=== PATIENT | female | born 1945 | race Caucasian/White ===

== ENCOUNTER 2019-11-08 08:46 | Inpatient (IN) | payer MEDICARE, MEDICAID ==
[~2019-11-08 08:46] MED LIST: Lactated Ringers 1,000 ML IV SCH; Lidocaine 1%/Sod Bicarbonate in NS 8.4% 1 ML Syringe IDERM PRN; Sodium Chloride 0.9% 10 ML Syringe FLUSH PRN
[2019-11-08] MEDS ORDERED: Bupivacaine 0.5%/EPINEPHrine 1:200,000 50 ML MDV ONE (09:18)
[2019-11-08] MEDS ORDERED: Dextrose 5% in Water 100 ML ONE (09:18)
[2019-11-08] MEDS ORDERED: Methylene Blue 50 MG/10 ML Ampule ONE (09:18)
[2019-11-08] MEDS ORDERED: Lidocaine 1% with EPINEPHrine 1:100,000 20 ML MDV ONE (09:18)
--- NOTE | 2019-11-08 09:42 | PCM.PREANE ---
Preanesthetic Assessment - Anesthesia/Transfusion/Family Hx Anesthesia History: Prior Anesthesia Without Reaction Transfusion History: Prior Transfusion Without Reaction - Review of Systems General: No Symptoms Pulmonary: No Symptoms Cardiovascular: No Symptoms Gastrointestinal: No Symptoms Neurological: No Symptoms Other: Reports: None - Physical Assessment NPO Status Date: 11/07/19 NPO Status Time: 22:00 Vital Signs: Last Vital Signs Temp 97.6 F 11/08/19 09:00 Pulse 57 L 11/08/19 09:00 Resp 16 11/08/19 09:00 BP 123/74 11/08/19 09:00 Pulse Ox 96 11/08/19 09:00 Height: 1.55 m Weight: 63.049 kg ASA Class: 2 Mental Status: Alert & Oriented x3 (slow to response) Airway Class: Mallampati = 4 Dentition: Reports: Broken Tooth/Teeth, Missing Tooth/Teeth Thyro-Mental Finger Breadths: 3 Mouth Opening Finger Breadths: 3 (limited opening) ROM/Head Extension: Limited/Partial Lungs: Clear to Auscultation, Normal Respiratory Effort Cardiovascular: Regular Rate, Regular Rhythm - Allergies Allergies/Adverse Reactions: Allergies Allergy/AdvReac Type Severity Reaction Status Date / Time alcohol Allergy Nausea Verified 11/07/19 11:41 aspirin Allergy Nausea Verified 11/07/19 11:41 codeine Allergy Cannot Verified 11/07/19 11:41 Remember - Acknowledgements Anesthesia Type Planned: General Anesthesia (phone consent from Deven Billings witnessed by Jazmyne Nice RN) Pt an Appropriate Candidate for the Planned Anesthesia: Yes Alternatives and Risks of Anesthesia Discussed w Pt/Guardian: Yes Pt/Guardian Understands and Agrees with Anesthesia Plan: Yes PreAnesthesia Questionnaire HEENT History: Reports: Other (See Below) Other HEENT History: broken tooth Cardiovascular History: Reports: High Cholesterol, Other (See Below) Other Cardiovascular History: hypotention Gastrointestinal History: Reports: Chronic Constipation Genitourinary History: Reports: UTI, Recurrent [employer] History: Reports: Musculoskeletal History: Reports: Arthritis Neurological History: Reports: Other (See Below) Other Neuro History: "confusion" Psychiatric History: Reports: Anxiety, Dementia, Depression, Psych Hospitalization(s), Schizophrenia Other Psychiatric History: Paranoid Endocrine/Metabolic History: Reports: Hypothyroidism, Osteopenia Hematologic History: Reports: Anemia Oncologic (Cancer) History: Reports: Breast (current dx) - Infectious Disease History Infectious Disease History: Reports: Chicken Pox Other Infectious Disease History: childhood - Past Surgical History Head Surgeries/Procedures: Reports: None HEENT Surgical History: Reports: None Cardiovascular Surgical History: Reports: None Respiratory Surgical History: Reports: None GI Surgical History: Reports: Colonoscopy Female Surgical History: Reports: Tubal Ligation Neurological Surgical History: Reports: None Oncologic Surgical History: Reports: Biopsy of Breast - SUBSTANCE USE Smoking Status *Q: Never Smoker Recreational Drug Use History: No - HOME MEDS Home Medications: Home Meds Acetaminophen [Tylenol Extra Strength] 500 mg PO Q4H PRN 11/07/19 [History] Alendronate [Fosamax] 35 mg PO Q7D 11/07/19 [History] Benztropine [Cogentin] 1 mg PO BEDTIME 11/07/19 [History] Calcium Carbonate/Vitamin D3 [Calcium 600-Vit D3 800 Tablet] 0.5 tab PO BID [History] Carboxymethylcellulose Sodium [Refresh Tears 0.5%] 1 drop EYEBOTH Q2H PRN [History] FA/Lycopene/Lut/MV,Ca,Iron,Min [Centrum] 1 tab PO DAILY 11/07/19 [History] LORazepam [Lorazepam] 0.25 mg PO DAILY 11/07/19 [History] Levothyroxine 75 mcg PO DAILY 11/07/19 [History] Lovastatin [Altoprev] 20 mg PO QPM 11/07/19 [History] Melatonin 10 mg PO BEDTIME 11/07/19 [History] Memantine HCl [Namenda] 10 mg PO BID 11/07/19 [History] OLANZapine [ZyPREXA] 10 mg PO QPM 11/07/19 [History] Paliperidone Palmitate [Invega Sustenna] 1.5 ml IM Q30D 11/07/19 [History] Sennosides [Senna] 1 tab PO QPM 11/07/19 [History] Sennosides [Senna] 2 tab PO QAM 11/07/19 [History] Sertraline [Zoloft] 25 mg PO DAILY 11/07/19 [History] Witch Christina [Hemorrhoidal Pads] 1 pad TOP DAILY PRN 11/07/19 [History] diphenhydrAMINE [Benadryl] 25 mg PO BEDTIME PRN 11/07/19 [History] polyethylene glycoL 3350 [MiraLAX] 17 g PO DAILY 11/07/19 [History] - CURRENT (IN HOUSE) MEDS Current Meds: Current Medications Lactated Ringer's (Ringers, Lactated) 1,000 mls @ 125 mls/hr IV ASDIRECTED [place] Stop: 11/08/19 23:00 Lidocaine/Sodium Bicarbonate (Buffered Lidocaine 1% In Ns 8.4%) 0.25 ml IDERM ONETIME PRN PRN Reason: Prior to IV Start Stop: 11/08/19 18:00 Sodium Chloride (Saline Flush) 10 ml FLUSH ASDIRECTED PRN PRN Reason: Keep Vein Open Stop: 11/08/19 18:00 Discontinued Medications Bupivacaine HCl/Epinephrine Bitart (Marcaine 0.5%/Epinephrine 1:200,000) Confirm Administered Dose 50 ml .ROUTE .STK-MED ONE Stop: 11/08/19 09:19 Dextrose/Water (Dextrose 5% In Water) Confirm Administered Dose 100 mls @ as directed .ROUTE .STK-MED ONE Stop: 11/08/19 09:19 Lidocaine/Epinephrine (Xylocaine 1% With Epinephrine 1:100,000) Confirm Administered Dose 20 ml .ROUTE .STK-MED ONE Stop: 11/08/19 09:19 Methylene Blue (Provayblue) Confirm Administered Dose 50 mg .ROUTE .STK-MED ONE Stop: 11/08/19 09:19
[2019-11-08] MEDS ORDERED: Propofol 200 MG/20 ML SDV ONE (09:58)
[2019-11-08] MEDS ORDERED: Rocuronium 50 MG/5 ML Vial ONE (09:58)
[2019-11-08] MEDS ORDERED: Midazolam 1 MG/ML 2 ML SDV ONE (09:59)
[2019-11-08] MEDS ORDERED: Ondansetron 4 MG/2 ML SDV ONE (09:59)
[2019-11-08] MEDS ORDERED: fentaNYL 250 MCG/5 ML SDV ONE (09:59)
[2019-11-08] MEDS ORDERED: Lidocaine 1% 4 ML ONE (10:02)
[2019-11-08] MEDS ORDERED: Succinylcholine/Normal Saline 100 MG/5 ML Syringe ONE (10:06)
[2019-11-08] MEDS ORDERED: ceFAZolin 1 GM Vial ONE (10:54)
[2019-11-08] MEDS ORDERED: ePHEDrine/Normal Saline 25 MG/5 ML Syringe ONE (11:16)
[2019-11-08] MEDS ORDERED: Ketamine 500 mg/10 ML MDV ONE (11:32)
[2019-11-08] MEDS ORDERED: fentaNYL 100 MCG/2 ML SDV IVPUSH PRN (12:45)
[2019-11-08] MEDS ORDERED: Ondansetron 4 MG/2 ML SDV IVPUSH PRN (12:45)
[2019-11-08] MEDS ORDERED: HYDROmorphone 0.5 MG/0.5 ML Syringe IVPUSH PRN (12:45)
--- NOTE | 2019-11-08 12:51 | NM ---
Lymphatic injection: 1.1 mCi of filtered technetium 99 M sulfur colloid was injected by the surgeon in the operating room prior to sentinel lymph node dissection. No imaging was obtained.
[2019-11-08] MEDS ORDERED: Lactated Ringers 1,000 ML ONE (13:12)
--- NOTE | 2019-11-08 13:29 | PCM.OPNOTE ---
- General Post-Op/Procedure Note Date of Surgery/Procedure: 11/08/19 Operative Procedure(s): Left mastectomy with sentinel lymph node biopsy Findings: Left breast with uptake of radiotracer into the axillary nodes Pre Op Diagnosis: Left breast invasive ductal carcinoma Post-Op Diagnosis: Same Anesthesia Technique: General ET Tube Primary Surgeon: Mere Chairez Anesthesia Provider: Davin Yu Pathology: 1. Left breast 2. Bilateral breast tissue 3. Superior lateral flap 4. Lateral flap 5. [place] lymph node #1 (210 counts) 6. [place] lymph node #2 (60 counts) Fluid Replacement, Intraop: 1,100 Output, Urine Amount: 0 EBL in mLs: 0 Surgical Drain/Tube Type: Gage Brennan Flat Drain Complications: None apparent Condition: Good
--- NOTE | 2019-11-08 13:31 | PCM.PRNOTE ---
- Free Text/Narrative Note: Operative Report Date of surgery: November 08, 2019 Preoperative diagnosis: Left breast invasive ductal carcinoma Postoperative diagnosis: same Procedure: Left mastectomy with sentinel lymph node biopsy Surgeon: Dr. Mere Chairez Actuarial Intern: N/A Anesthesia: General ET Mold Repairer: Davin Yu CRNA Estimated blood loss: 50 mL IV fluids: 1100 mL Urine output: 0 mL Drains and lines: Gage-Brennan flat drain in the left chest Findings: Left breast with radiotracer uptake into the sentinel nodes. 2 sentinel lymph nodes identified Pathology: 1. Left breast 2. Bilateral breast tissue 3. Superior lateral flap 4. Lateral flap 5. [place] lymph node #1 (210 counts) 6. [place] lymph node #2 (60 counts) Indication for the procedure: The patient is a 74-year-old lady who presented with findings of invasive ductal carcinoma in the left breast. She had previously undergone stereotactic biopsy of this lesion with pathology proving invasive ductal carcinoma. She was consented for a mastectomy after discussion of risks of possible bleeding, infection, hematoma, seroma, and wound complications. We also discussed a sentinel lymph node biopsy. We discussed risks of possible upper exremity edema and numbness. Written consent was obtained from the patient's legal guardian. Description of the procedure: The patient was brought to the operating room and placed in the supine position on the operating table. The left breast had been marked in the preoperative area. She had successful induction of general anesthesia, and was intubated without difficulty. Antibiotics were given according to SQIP guidelines. After the patient had successfully been anesthetized, the lymphoscintigraphy injection was then placed into the left breast in 4 quadrants. The patient was prepped and draped in standard surgical fashion. A surgical timeout was performed. Methylene blue was then injected in 4 quadrants around the nipple area complex, a total of 4 mL was used. An incision was marked in an elliptical fashion a round the nipple-areolar complex. Once this was drawn on the skin with a sterile skin marker, an incision was made with a #10 blade scalpel, then extended through the remainder of the dermis using the Bovie device, maintaining hemostasis as we progressed. The skin flaps were then raised superiorly, medially, inferiorly and laterally, taking care to maintain adequate vascular supply. The dissection taken down to the chest wall in the superior, medial and inferior positions. The breast tissue was then dissected off the chest wall to the investing fascia of the pectoralis major muscle. The breast was carefully taken off the axilla. The specimen was then oriented with a short suture placed superiorly and a long suture placed laterally before it was passed off the field for evaluation by pathology. The [place] counter was used to evaluate for any axillary nodes that might be detached the breast specimen prior to sending the breast to pathology. We did have uptake on the counter and on the lateral breast tissue, but there were no nodes visualized and we were clearly dissected off part of the breast tissue. This was then sent as a specimen with no nodes identified. The flaps were then identified and there was extra breast tissue remaining on the superior lateral and lateral areas of our dissection. Additional tissue was taken off to within the flaps appropriately. The axilla was then inspected using the [place] counter. The highest area of uptake was then isolated and dissected free using blunt dissection as well as the Bovie device. Two sentinel lymph nodes were identified. These were sent for pathology. We did note still some significant uptake on the [place] counter. However this was isolated to a asked lymphatic channel. There was no additional lymph nodes identified. The lymph channel was then left intact. The operative field was then inspected for adequacy of hemostasis. The wound was irrigated using sterile water. The wound was then irrigated and inspected again. Having obtained excellent hemostasis, A 10 mm Gage-Brennan drain was then inserted into the mastectomy cavity and brought out through that stab wound on the lateral chest skin and secured to the skin externally using a 2-0 nylon suture. It was connected to bulb suction. The skin was then closed in two layers. The deep dermis was approximated using running simple suture of 3-0 Vicryl and the skin closed with running subcuticular suture of 4-0 Monocryl. Dermabond surgical glue was applied to the top layer of skin. Gauze is placed around the drain as a drain dressing, and additional gauze and a surgical bra was placed. The patient tolerated the procedures well. Sponge, needle and instrument counts were all correct at the end of the procedure. The patient was then brought back to the PACU at the end of the procedure, extubated, awake and in good condition. No immediate complications were noted. Mere Chairez MD General Surgery
[2019-11-08] MEDS ORDERED: Ondansetron 4 MG Tab.DIS PO PRN (13:36)
[2019-11-08] MEDS ORDERED: oxyCODONE 5 MG Tab PO PRN (13:36)
[2019-11-08] MEDS ORDERED: Ibuprofen 600 MG Tab PO PRN (13:36)
--- NOTE | 2019-11-08 14:05 | PCM.POSTAN ---
POST ANESTHESIA ASSESSMENT - MENTAL STATUS Mental Status: Somnolent - VITAL SIGNS Vital Signs: Last Vital Signs Temp 97.3 F 11/08/19 14:00 Pulse 81 11/08/19 14:00 Resp 15 11/08/19 14:00 BP 126/74 11/08/19 14:00 Pulse Ox 99 11/08/19 14:00 - RESPIRATORY Respiratory Status: Respiratory Rate WNL, Airway Patent, O2 Saturation Stable, Supplemental Oxygen - CARDIOVASCULAR CV Status: Pulse Rate WNL, Blood Pressure Stable - GASTROINTESTINAL GI Status: No Symptoms - PAIN Pain Score: 0 - POST OP HYDRATION Hydration Status: Adequate & Stable
[2019-11-08] MEDS ORDERED: Carboxymethylcellulose Sodium 1% Ophth Gel 15 ML Bottle EYEBOTH PRN (15:30)
[2019-11-08] MEDS: Benztropine 1 MG Tab PO SCH (15:57)
[2019-11-08] MEDS ORDERED: Melatonin 3 MG Tab PO SCH (21:00)
[2019-11-08] MEDS ORDERED: diphenhydrAMINE 25 MG Cap PO PRN (21:00)
[2019-11-08] MEDS ORDERED: LOVASTATIN 20 MG PO SCH (21:00)
[2019-11-08] MEDS ORDERED: Sennosides 8.6 MG Tab PO SCH (21:00)
[2019-11-08] MEDS: Calcium Carbonate/Vitamin D3 600 MG-200 Units Tab PO SCH (21:57)
[2019-11-08] MEDS: Memantine 10 MG Tab PO SCH (21:57)
[2019-11-08] MEDS: Acetaminophen 325 MG Tab PO PRN (21:58)
--- NOTE | 2019-11-09 05:58 | PCM.SURGPN ---
- General Info Date of Service: 11/09/19 Functional Status: Reports: Pain Controlled, Tolerating Diet, Ambulating, Urinating, Incentive Spirometry - Patient Data Vitals - Most Recent: Last Vital Signs Temp 37.0 C 11/09/19 00:05 Pulse 74 11/09/19 00:05 Resp 20 11/09/19 00:05 BP 93/48 L 11/09/19 00:05 Pulse Ox 94 L 11/09/19 00:05 Weight - Most Recent: 63.911 kg I&O - Last 24 Hours: Intake & Output 11/08/19 11/08/19 11/09/19 14:59 22:59 06:59 Intake Total 1330 980 350 Output Total 20 350 20 Balance 1310 630 330 Lab Results Last 24 Hrs: Laboratory Results - last 24 hr 11/08/19 Range/Units 15:55 MRSA (PCR) Negative Med Orders - Current: Current Medications Acetaminophen (Tylenol) 650 mg PO Q4H PRN PRN Reason: Pain (Mild 1-3)/fever Last Admin: 11/08/19 21:58 Dose: 650 mg Artificial Tears (Refresh Liquigel 1%) 0 ml EYEBOTH Q2H PRN PRN Reason: Dry Eyes Benztropine Mesylate (Cogentin) 1 mg PO DAILY [facility] Last Admin: 11/08/19 15:57 Dose: Not Given Calcium Carbonate (Calcium Carbonate/Vitamin D 600 Mg-200 Unit) 0.5 tab PO BID [facility] Last Admin: 11/08/19 21:57 Dose: 0.5 tab Diphenhydramine HCl (Benadryl) 25 mg PO BEDTIME PRN PRN Reason: Insomnia Heparin Sodium (Porcine) (Heparin Sodium) 5,000 units SUBCUT Q8H [facility] Ibuprofen (Motrin) 600 mg PO Q6H PRN PRN Reason: Pain (mild 1-3) Levothyroxine Sodium (Levothyroxine) 75 mcg PO ACBREAKFAST [facility] Lorazepam (Ativan) 0.25 mg PO DAILY [facility] Melatonin (Melatonin) 9 mg PO BEDTIME [facility] Last Admin: 11/08/19 21:56 Dose: 9 mg Memantine (Namenda) 10 mg PO BID [facility] Last Admin: 11/08/19 21:57 Dose: 10 mg Multivitamins (Thera) 1 each PO DAILY [facility] Olanzapine (Zyprexa) 10 mg PO DAILY [facility] Ondansetron HCl (Zofran Odt) 4 mg PO Q6H PRN PRN Reason: nausea, able to take PO Oxycodone HCl (Oxycodone) 5 mg PO Q4H PRN PRN Reason: Pain (moderate 4-6) Lovastatin [Altoprev (] 20 Mg Er) 0 each PO BEDTIME [facility] Last Admin: 11/08/19 21:57 Dose: Not Given Paliperidone Palmitate 1.5 Ml ( Invega Sustenna Inj) 0 each IM Q30D [facility] Polyethylene Glycol (Miralax) 17 gm PO DAILY [facility] Senna (Senna) 8.6 mg PO BEDTIME [facility] Last Admin: 11/08/19 21:57 Dose: 8.6 mg Senna (Senna) 17.2 mg PO DAILY [place] Sertraline HCl (Zoloft) 25 mg PO DAILY [facility] Discontinued Medications Bupivacaine HCl/Epinephrine Bitart (Marcaine 0.5%/Epinephrine 1:200,000) Confirm Administered Dose 50 ml .ROUTE .STK-MED ONE Stop: 11/08/19 09:19 Last Admin: 11/08/19 11:27 Dose: 10 ml Cefazolin Sodium (Ancef) Confirm Administered Dose 2 gm .ROUTE .STK-MED ONE Stop: 11/08/19 10:55 Ephedrine Sulfate (Ephedrine In Ns) Confirm Administered Dose 25 mg .ROUTE .STK- MED ONE Stop: 11/08/19 11:17 Fentanyl (Sublimaze) Confirm Administered Dose 250 mcg .ROUTE .STK-MED ONE Stop: 11/08/19 10:00 Fentanyl (Sublimaze) 50 mcg IVPUSH Q5M PRN PRN Reason: Pain Stop: 11/08/19 15:30 Hydromorphone HCl (Dilaudid) 0.5 mg IVPUSH Q10M PRN PRN Reason: Pain (severe 7-10) Stop: 11/08/19 15:30 Lactated Ringer's (Ringers, Lactated) 1,000 mls @ 125 mls/hr IV ASDIRECTED [facility] Stop: 11/08/19 23:00 Last Admin: 11/08/19 09:18 Dose: 125 mls/hr Dextrose/Water (Dextrose 5% In Water) Confirm Administered Dose 100 mls @ as directed .ROUTE .STK-MED ONE Stop: 11/08/19 09:19 Lidocaine HCl (Xylocaine-Mpf 1%) Confirm Administered Dose 4 mls @ as directed .ROUTE .[facility]-MED ONE Stop: 11/08/19 10:03 Lactated Ringer's (Ringers, Lactated) Confirm Administered Dose 1,000 mls @ as directed .ROUTE .[facility]-MED ONE Stop: 11/08/19 13:13 Ketamine HCl (Ketalar) Confirm Administered Dose 500 mg .ROUTE .[facility]-MED ONE Stop: 11/08/19 11:33 Lidocaine/Epinephrine (Xylocaine 1% With Epinephrine 1:100,000) Confirm Administered Dose 20 ml .ROUTE .[facility]-MED ONE Stop: 11/08/19 09:19 Last Admin: 11/08/19 11:27 Dose: 10 ml Lidocaine/Sodium Bicarbonate (Buffered Lidocaine 1% In Ns 8.4%) 0.25 ml IDERM ONETIME PRN PRN Reason: Prior to IV Start Stop: 11/08/19 18:00 Last Admin: 11/08/19 09:15 Dose: 0.25 ml Methylene Blue (Provayblue) Confirm Administered Dose 50 mg .ROUTE .[facility]-MED ONE Stop: 11/08/19 09:19 Last Admin: 11/08/19 11:22 Dose: 12.5 mg Midazolam HCl (Versed 1 Mg/Ml) Confirm Administered Dose 2 mg .ROUTE .[facility]-MED ONE Stop: 11/08/19 10:00 Ondansetron HCl (Zofran) Confirm Administered Dose 4 mg .ROUTE .[facility]-MED ONE Stop: 11/08/19 10:00 Ondansetron HCl (Zofran) 4 mg IVPUSH ONETIME PRN PRN Reason: Nausea/Vomiting Stop: 11/08/19 15:30 Propofol (Diprivan 20 Ml) Confirm Administered Dose 200 mg .ROUTE .[facility]-MED ONE Stop: 11/08/19 09:59 Rocuronium Nenzel (Zemuron) Confirm Administered Dose 50 mg .ROUTE .[facility]-MED ONE Stop: 11/08/19 09:59 Sodium Chloride (Saline Flush) 10 ml FLUSH ASDIRECTED PRN PRN Reason: Keep Vein Open Stop: 11/08/19 18:00 Succinylcholine Chloride (Succinylcholine In Ns Pf) Confirm Administered Dose 100 mg .ROUTE .ST-MED ONE Stop: 11/08/19 10:07 - Exam Wound/Incisions: Healing Well, Dressing Dry and Intact, Other (SS drainage in bulb) Sepsis Event Note - Evaluation Sepsis Screening Result: No Definite Risk - Focused Exam Vital Signs: Vital Signs Temp Pulse Resp BP Pulse Ox 11/09/19 00:05 37.0 C 74 20 93/48 L 94 L 11/08/19 21:47 36.7 C 78 20 103/89 94 L Date Exam was Performed: 11/09/19 Time Exam was Performed: 05:56 - Problem List & Annotations (1) S/P left mastectomy SNOMED Code(s): 083595818, 695054621 Code(s): Z90.12 - ACQUIRED ABSENCE OF LEFT BREAST AND NIPPLE Status: Acute Current Visit: Yes - Problem List Review Problem List Initiated/Reviewed/Updated: Yes - My Orders Last 24 Hours: Active Orders 24 hr Category Date Time Status Patient Status [ADT] Routine ADT 11/08/19 15:09 Active Antiembolic Devices [RC] BID Care 11/08/19 13:37 Active Communication Order [RC] ASDIRECTED Care 11/08/19 13:36 Active Drain Management [RC] 04,10,16,22 Care 11/08/19 13:36 Active Oxygen Therapy [RC] PRN Care 11/08/19 13:37 Active RT Incentive Spirometry [RC] Q1HWA Care 11/08/19 13:36 Active Up With Assistance [RC] ASDIRECTED Care 11/08/19 13:36 Active VTE/DVT Education [RC] BID Care 11/08/19 13:37 Active Vital Signs [RC] Q4HR Care 11/08/19 12:45 Active OT Evaluation and Treatment [CONS] Routine Cons 11/08/19 13:36 Active Regular Diet [DIET] Diet 11/08/19 Lunch Active Acetaminophen [Tylenol] Med 11/08/19 13:36 Active 650 mg PO Q4H PRN Benztropine [Cogentin] Med 11/08/19 09:00 Active 1 mg PO DAILY Calcium Carbonate/Vitamin D3 [Calcium Carbonate/Vitamin Med 11/08/19 21:00 Active D 600 MG-200 Unit] 0.5 tab PO BID Carboxymethylcellulose Sodium [Refresh Liquigel 1%] Med 11/08/19 15:30 Active 0 ml EYEBOTH Q2H PRN Heparin Sodium Med 11/09/19 08:00 Active 5,000 units SUBCUT Q8H Ibuprofen [Motrin] Med 11/08/19 13:36 Active 600 mg PO Q6H PRN LORazepam [Ativan] Med 11/09/19 09:00 Active 0.25 mg PO DAILY Levothyroxine Med 11/09/19 06:00 Active 75 mcg PO ACBREAKFAST Melatonin Med 11/08/19 21:00 Active 9 mg PO BEDTIME Memantine [Namenda] Med 11/08/19 21:00 Active 10 mg PO BID Multivitamins,Therapeutic [Thera] Med 11/09/19 09:00 Active 1 each PO DAILY OLANZapine [ZyPREXA] Med 11/09/19 09:00 Active 10 mg PO DAILY Ondansetron [Zofran ODT] Med 11/08/19 13:36 Active 4 mg PO Q6H PRN Patient's Own Medication [Ptom] Med 11/19/19 09:00 Active 0 each IM Q30D Patient's Own Medication [Ptom] Med 11/08/19 21:00 Active 0 each PO BEDTIME Sennosides [Senna] Med 11/09/19 09:00 Active 17.2 mg PO DAILY Sennosides [Senna] Med 11/08/19 21:00 Active 8.6 mg PO BEDTIME Sertraline [Zoloft] Med 11/09/19 09:00 Active 25 mg PO DAILY diphenhydrAMINE [Benadryl] Med 11/08/19 21:00 Active 25 mg PO BEDTIME PRN oxyCODONE Med 11/08/19 13:36 Active 5 mg PO Q4H PRN polyethylene glycoL 3350 [MiraLAX] Med 11/09/19 09:00 Active 17 gm PO DAILY Sequential Compression Device [OM.PC] Per Unit Routine Oth 11/08/19 13:37 Ordered Wound Management Education [OM.PC] Routine Oth 11/08/19 13:36 Ordered Resuscitation Status Routine Resus Stat 11/08/19 13:36 Ordered EKG 12 Lead [EK] Routine Ther 11/08/19 09:10 Ordered Medication Orders Acetaminophen (Tylenol) 650 mg PO Q4H PRN PRN Reason: Pain (Mild 1-3)/fever Last Admin: 11/08/19 21:58 Dose: 650 mg Artificial Tears (Refresh Liquigel 1%) 0 ml EYEBOTH Q2H PRN PRN Reason: Dry Eyes Benztropine Mesylate (Cogentin) 1 mg PO DAILY [facility] Last Admin: 11/08/19 15:57 Dose: Calcium Carbonate (Calcium Carbonate/Vitamin D 600 Mg-200 Unit) 0.5 tab PO BID [facility] Last Admin: 11/08/19 21:57 Dose: 0.5 tab Diphenhydramine HCl (Benadryl) 25 mg PO BEDTIME PRN PRN Reason: Insomnia Heparin Sodium (Porcine) (Heparin Sodium) 5,000 units SUBCUT Q8H [facility] Ibuprofen (Motrin) 600 mg PO Q6H PRN PRN Reason: Pain (mild 1-3) Levothyroxine Sodium (Levothyroxine) 75 mcg PO ACBREAKFAST [facility] Lorazepam (Ativan) 0.25 mg PO DAILY [facility] Melatonin (Melatonin) 9 mg PO BEDTIME [facility] Last Admin: 11/08/19 21:56 Dose: 9 mg Memantine (Namenda) 10 mg PO BID [facility] Last Admin: 11/08/19 21:57 Dose: 10 mg Multivitamins (Thera) 1 each PO DAILY [facility] Olanzapine (Zyprexa) 10 mg PO DAILY [facility] Ondansetron HCl (Zofran Odt) 4 mg PO Q6H PRN PRN Reason: nausea, able to take PO Oxycodone HCl (Oxycodone) 5 mg PO Q4H PRN PRN Reason: Pain (moderate 4-6) Lovastatin [Altoprev (] 20 Mg Er) 0 each PO BEDTIME [facility] Last Admin: 11/08/19 21:57 Dose: Paliperidone Palmitate 1.5 Ml ( Invega Sustenna Inj) 0 each IM Q30D [facility] Polyethylene Glycol (Miralax) 17 gm PO DAILY [facility] Senna (Senna) 8.6 mg PO BEDTIME [facility] Last Admin: 11/08/19 21:57 Dose: 8.6 mg Senna (Senna) 17.2 mg PO DAILY [facility] Sertraline HCl (Zoloft) 25 mg PO DAILY [facility] - Assessment Assessment (Free Text/Narrative):: 74 y/o lady who is POD 1 s/p left mastectomy and [place] lymph node biopsy - Plan Plan (Free Text/Narrative):: - continue current pain regimen - OT evaluation today for exercises - regular diet - continue home meds - drain teaching - incentive spirometry Mere Chairez MD General surgery
[2019-11-09] MEDS ORDERED: Levothyroxine 75 MCG Tab PO SCH (06:00)
--- NOTE | 2019-11-09 06:04 | PCM.DCSUM1 ---
Discharge Summary - Hospital Course Free Text/Narrative:: Pt admitted for postoperative care after left mastectomy and sentinel lymph node biopsy. She did well with appropriate drain output. She was discharged home on post operative day one. Modified Evangeline Scale: No Signif.Disability Despite Sympt.Able to Carry Out Usual Act./Duties Modified Evangeline Scale Score: 1 - Discharge Data Discharge Date: 11/09/19 Discharge Disposition: DC/Tfer to SNF 03 Condition: Good - Referral to Home Health Primary Care Physician: Frank Hyman MD - Discharge Diagnosis/Problem(s) (1) S/P left mastectomy SNOMED Code(s): 782585723, [id number] ICD Code: Z90.12 - ACQUIRED ABSENCE OF LEFT BREAST AND NIPPLE Status: Acute Current Visit: Yes - Patient Summary/Data Operative Procedure(s) Performed: Left mastectomy with sentinel lymph node biopsy Consults: Consultations 11/08/19 13:36 OT Evaluation and Treatment [CONS] Routine - Patient Instructions Diet: Usual Diet as Tolerated Activity: As Tolerated, No Lifting Over 20 Pounds (for 2 weeks), No Strenuous Activities (for 2 weeks) Activity, Other: Please do your exercises as recommended by the therapist Showering/Bathing: May Shower (48 hours after drain is removed), No Showering ( until the drain is removed), No Tub Bathing/Swimming (Until 2 weeks after your drain is removed) Wound/Incision Care: Keep Operative Site/Wound Site Clean and Dry Notify Provider of: Fever, Increased Pain, Swelling and Redness, Drainage, Nausea and/or Vomiting - Discharge Plan *PRESCRIPTION DRUG MONITORING PROGRAM REVIEWED*: Not Applicable *COPY OF PRESCRIPTION DRUG MONITORING REPORT IN PATIENT ARNOLDO: Not Applicable Prescriptions/Med Rec: Acetaminophen [Tylenol] 650 mg PO Q4H PRN 20 Days #120 tablet PRN Reason: Pain (Mild 1-3)/fever Ibuprofen [Motrin] 600 mg PO Q6H PRN 20 Days #120 tablet PRN Reason: Pain (Mild 1-3) Home Medications: Home Meds Acetaminophen [Tylenol Extra Strength] 500 mg PO Q4H PRN 11/07/19 [History] Alendronate [Fosamax] 35 mg PO Q7D 11/07/19 [History] Benztropine [Cogentin] 1 mg PO BEDTIME 11/07/19 [History] Calcium Carbonate/Vitamin D3 [Calcium 600-Vit D3 800 Tablet] 0.5 tab PO BID [History] Carboxymethylcellulose Sodium [Refresh Tears 0.5%] 1 drop EYEBOTH Q2H PRN [History] FA/Lycopene/Lut/MV,Ca,Iron,Min [Centrum] 1 tab PO DAILY 11/07/19 [History] LORazepam [Lorazepam] 0.25 mg PO DAILY 11/07/19 [History] Levothyroxine 75 mcg PO DAILY 11/07/19 [History] Lovastatin [Altoprev] 20 mg PO QPM 11/07/19 [History] Melatonin 10 mg PO BEDTIME 11/07/19 [History] Memantine HCl [Namenda] 10 mg PO BID 11/07/19 [History] OLANZapine [ZyPREXA] 10 mg PO QPM 11/07/19 [History] Paliperidone Palmitate [Invega Sustenna] 1.5 ml IM Q30D 11/07/19 [History] Sennosides [Senna] 1 tab PO QPM 11/07/19 [History] Sennosides [Senna] 2 tab PO QAM 11/07/19 [History] Sertraline [Zoloft] 25 mg PO DAILY 11/07/19 [History] Witch Christina [Hemorrhoidal Pads] 1 pad TOP DAILY PRN 11/07/19 [History] diphenhydrAMINE [Benadryl] 25 mg PO BEDTIME PRN 11/07/19 [History] polyethylene glycoL 3350 [MiraLAX] 17 g PO DAILY 11/07/19 [History] Acetaminophen [Tylenol] 650 mg PO Q4H PRN 20 Days #120 tablet 11/09/19 [Rx] Ibuprofen [Motrin] 600 mg PO Q6H PRN 20 Days #120 tablet 11/09/19 [Rx] Patient Handouts: Exercises Following Breast Surgery Referrals: Mere Chairez MD [Physician] - (follow up in 1 week) - Discharge Summary/Plan Comment DC Time >30 min.: No - Patient Data Vitals - Most Recent: Last Vital Signs Temp 37.0 C 11/09/19 00:05 Pulse 74 11/09/19 00:05 Resp 20 11/09/19 00:05 BP 93/48 L 11/09/19 00:05 Pulse Ox 94 L 11/09/19 00:05 Weight - Most Recent: 63.911 kg I&O - Last 24 hours: Intake & Output 11/08/19 11/08/19 11/09/19 14:59 22:59 06:59 Intake Total 1330 980 350 Output Total 20 350 20 Balance 1310 630 330 Lab Results - Last 24 hrs: Laboratory Results - last 24 hr 11/08/19 Range/Units 15:55 MRSA (PCR) Negative Med Orders - Current: Current Medications Acetaminophen (Tylenol) 650 mg PO Q4H PRN PRN Reason: Pain (Mild 1-3)/fever Last Admin: 11/08/19 21:58 Dose: 650 mg Artificial Tears (Refresh Liquigel 1%) 0 ml EYEBOTH Q2H PRN PRN Reason: Dry Eyes Benztropine Mesylate (Cogentin) 1 mg PO DAILY [facility] Last Admin: 11/08/19 15:57 Dose: Not Given Calcium Carbonate (Calcium Carbonate/Vitamin D 600 Mg-200 Unit) 0.5 tab PO BID [facility] Last Admin: 11/08/19 21:57 Dose: 0.5 tab Diphenhydramine HCl (Benadryl) 25 mg PO BEDTIME PRN PRN Reason: Insomnia Heparin Sodium (Porcine) (Heparin Sodium) 5,000 units SUBCUT Q8H [facility] Ibuprofen (Motrin) 600 mg PO Q6H PRN PRN Reason: Pain (mild 1-3) Levothyroxine Sodium (Levothyroxine) 75 mcg PO ACBREAKFAST [facility] Lorazepam (Ativan) 0.25 mg PO DAILY [facility] Melatonin (Melatonin) 9 mg PO BEDTIME [facility] Last Admin: 11/08/19 21:56 Dose: 9 mg Memantine (Namenda) 10 mg PO BID [facility] Last Admin: 11/08/19 21:57 Dose: 10 mg Multivitamins (Thera) 1 each PO DAILY [facility] Olanzapine (Zyprexa) 10 mg PO DAILY [facility] Ondansetron HCl (Zofran Odt) 4 mg PO Q6H PRN PRN Reason: nausea, able to take PO Oxycodone HCl (Oxycodone) 5 mg PO Q4H PRN PRN Reason: Pain (moderate 4-6) Lovastatin [Altoprev (] 20 Mg Er) 0 each PO BEDTIME [facility] Last Admin: 11/08/19 21:57 Dose: Not Given Paliperidone Palmitate 1.5 Ml ( Invega Sustenna Inj) 0 each IM Q30D [facility] Polyethylene Glycol (Miralax) 17 gm PO DAILY [facility] Senna (Senna) 8.6 mg PO BEDTIME [facility] Last Admin: 11/08/19 21:57 Dose: 8.6 mg Senna (Senna) 17.2 mg PO DAILY [facility] Sertraline HCl (Zoloft) 25 mg PO DAILY [facility] Discontinued Medications Bupivacaine HCl/Epinephrine Bitart (Marcaine 0.5%/Epinephrine 1:200,000) Confirm Administered Dose 50 ml .ROUTE .STK-MED ONE Stop: 11/08/19 09:19 Last Admin: 11/08/19 11:27 Dose: 10 ml Cefazolin Sodium (Ancef) Confirm Administered Dose 2 gm .ROUTE .STK-MED ONE Stop: 11/08/19 10:55 Ephedrine Sulfate (Ephedrine In Ns) Confirm Administered Dose 25 mg .ROUTE .STK- MED ONE Stop: 11/08/19 11:17 Fentanyl (Sublimaze) Confirm Administered Dose 250 mcg .ROUTE .STK-MED ONE Stop: 11/08/19 10:00 Fentanyl (Sublimaze) 50 mcg IVPUSH Q5M PRN PRN Reason: Pain Stop: 11/08/19 15:30 Hydromorphone HCl (Dilaudid) 0.5 mg IVPUSH Q10M PRN PRN Reason: Pain (severe 7-10) Stop: 11/08/19 15:30 Lactated Ringer's (Ringers, Lactated) 1,000 mls @ 125 mls/hr IV ASDIRECTED [facility] Stop: 11/08/19 23:00 Last Admin: 11/08/19 09:18 Dose: 125 mls/hr Dextrose/Water (Dextrose 5% In Water) Confirm Administered Dose 100 mls @ as directed .ROUTE .STK-MED ONE Stop: 11/08/19 09:19 Lidocaine HCl (Xylocaine-Mpf 1%) Confirm Administered Dose 4 mls @ as directed .ROUTE .STK-MED ONE Stop: 11/08/19 10:03 Lactated Ringer's (Ringers, Lactated) Confirm Administered Dose 1,000 mls @ as directed .ROUTE .STK-MED ONE Stop: 11/08/19 13:13 Ketamine HCl (Ketalar) Confirm Administered Dose 500 mg [facility] Stop: 11/08/19 11:33 Lidocaine/Epinephrine (Xylocaine 1% With Epinephrine 1:100,000) Confirm Administered Dose 20 ml .ROUTE .ST-MED ONE Stop: 11/08/19 09:19 Last Admin: 11/08/19 11:27 Dose: 10 ml Lidocaine/Sodium Bicarbonate (Buffered Lidocaine 1% In Ns 8.4%) 0.25 ml IDERM ONETIME PRN PRN Reason: Prior to IV Start Stop: 11/08/19 18:00 Last Admin: 11/08/19 09:15 Dose: 0.25 ml Methylene Blue (Provayblue) Confirm Administered Dose 50 mg .[facility]OUTE [facility] Stop: 11/08/19 09:19 Last Admin: 11/08/19 11:22 Dose: 12.5 mg Midazolam HCl (Versed 1 Mg/Ml) Confirm Administered Dose 2 mg .ROUTE .ST-MED ONE Stop: 11/08/19 10:00 Ondansetron HCl (Zofran) Confirm Administered Dose 4 mg .ROUTE [facility] Stop: 11/08/19 10:00 Ondansetron HCl (Zofran) 4 mg IVPUSH ONETIME PRN PRN Reason: Nausea/Vomiting Stop: 11/08/19 15:30 Propofol (Diprivan 20 Ml) Confirm Administered Dose 200 mg .ROUTE .ST-MED ONE Stop: 11/08/19 09:59 Rocuronium [place] (Zemuron) Confirm Administered Dose 50 mg .ROUTE .ST-MED ONE Stop: 11/08/19 09:59 Sodium Chloride (Saline Flush) 10 ml FLUSH ASDIRECTED PRN PRN Reason: Keep Vein Open Stop: 11/08/19 18:00 Succinylcholine Chloride (Succinylcholine In Ns Pf) Confirm Administered Dose 100 mg .ROUTE .STK-MED ONE Stop: 11/08/19 10:07
[2019-11-09] MEDS: Acetaminophen 325 MG Tab PO PRN (06:45)
[2019-11-09] MEDS ORDERED: Heparin Sodium 5,000 Units/ML Vial SUBCUT SCH (08:00)
[2019-11-09] MEDS ORDERED: Multivitamins,Therapeutic Tab PO SCH (09:00)
[2019-11-09] MEDS ORDERED: Sennosides 8.6 MG Tab PO SCH (09:00)
[2019-11-09] MEDS ORDERED: Sertraline 25 MG Tab PO SCH (09:00)
[2019-11-09] MEDS ORDERED: OLANZapine 5 MG Tab PO SCH (09:00)
[2019-11-09] MEDS ORDERED: LORazepam 0.5 MG Tab PO SCH (09:00)
[2019-11-09] MEDS ORDERED: Polyethylene Glycol 3350 Powder 17 GM Packet PO SCH (09:00)
[2019-11-09] MEDS: Memantine 10 MG Tab PO SCH (09:02)
[2019-11-09] MEDS: Calcium Carbonate/Vitamin D3 600 MG-200 Units Tab PO SCH (09:04)
[2019-11-09] MEDS: Benztropine 1 MG Tab PO SCH (09:05)
--- NOTE | 2019-11-09 15:45 | PCM48HPAN ---
Post Anesthesia Note - EVALUATION WITHIN 48HRS OF ANESTHETIC Vital Signs in Normal Range: Yes Patient Participated in Evaluation: No (Patient just discharged) Respiratory Function Stable: Yes Airway Patent: Yes Cardiovascular Function Stable: Yes Hydration Status Stable: Yes Pain Control Satisfactory: Yes (minimal per nurse) Nausea and Vomiting Control Satisfactory: Yes (none per nurse) Mental Status Recovered: Yes Vital Signs: Last Vital Signs Temp 98.6 F 11/09/19 09:00 Pulse 85 11/09/19 09:00 Resp 16 11/09/19 08:59 BP 107/58 L 11/09/19 08:59 Pulse Ox 97 11/09/19 09:00
[2019-11-10 05:15] VITALS: BP 108/51; PULSE 72
[2019-11-19] MEDS ORDERED: PALIPERIDONE PALMITATE IM SCH (09:00)
== END 2019-11-09 12:57 | DRG 581 ==
LOC: JD.MS 08:46
PROVIDERS: ADMIT Surgery; ATTEND Surgery
PROC: 0HTU0ZZ Resection of Left Breast, Open Approach (ICD-10-PCS; principal; 2019-11-08)
PROC: 07B60ZX Excision of Left Axillary Lymphatic, Open Approach, Diagnostic (ICD-10-PCS; 2019-11-08)
DX: C50.912 Malignant neoplasm of unspecified site of left female breast (principal); K59.00 Constipation, unspecified; F41.9 Anxiety disorder, unspecified; K21.9 Gastro-esophageal reflux disease without esophagitis; E03.9 Hypothyroidism, unspecified; E78.5 Hyperlipidemia, unspecified; E55.9 Vitamin D deficiency, unspecified
CPT/HCPCS: 01610; 38792; 87641; 93005; 97110-GO; 97166-GO; A9270-GY; A9541; J0330; J0690; J1644; J2001; J2250; J2405; J2704; J3010; J3490; J7050; J7060; J7120